=== PATIENT | female | born 1985 | race African-American/Black ===

== ENCOUNTER 2018-05-23 05:39 | Day surgery (SDC) | payer OTHER ==
[~2018-05-23] VITALS: Ht 162.6 cm; Wt 101.2 kg
[2018-05-23] MEDS ORDERED: ONDANSETRON PF 4 MG/2 ML VIAL. ONE (06:26)
[2018-05-23] MEDS ORDERED: DEXAMETHASONE SOD PHOS 20 MG/5 ML VIAL. ONE (06:26)
[2018-05-23] MEDS ORDERED: PROPOFOL 20 ML IV ONE (06:26)
[2018-05-23] MEDS ORDERED: ROCURONIUM 50 MG/5 ML VIAL. ONE (06:27)
[2018-05-23] MEDS ORDERED: fentaNYL PF VIAL 100 MCG/2 ML VIAL ONE (06:45)
[2018-05-23] MEDS ORDERED: FAMOTIDINE 20 MG/2 ML VIAL ONE (06:45)
[2018-05-23] MEDS ORDERED: MIDAZOLAM HCL/PF 2 MG/2 ML VIAL. ONE (06:45)
[2018-05-23] MEDS ORDERED: LIDOCAINE 1% PF 5 ML VIAL. ONE (06:46)
[2018-05-23] MEDS ORDERED: IV RINGERS,LACTATED 1000ML 1,000 ML IV SCH (07:00)
[2018-05-23] MEDS ORDERED: HYDROmorphone 2 MG/ML VIAL IV PRN (07:00)
[2018-05-23] MEDS ORDERED: LIDOCAINE 1% PF 2 ML VIAL. ID PRN (07:00)
[2018-05-23] MEDS ORDERED: MORPHINE SULFATE 2 MG/ML VIAL. IV PRN (07:00)
[2018-05-23] MEDS ORDERED: ONDANSETRON PF 4 MG/2 ML VIAL. IV PRN (07:00)
[2018-05-23] MEDS ORDERED: fentaNYL PF VIAL 100 MCG/2 ML VIAL IV PRN ×2 (07:00)
[2018-05-23] MEDS ORDERED: PROCHLORPERAZINE 10 MG/2 ML VIAL. IV PRN (07:00)
[2018-05-23] MEDS ORDERED: IOHEXOL 300 MG/ML 100ML VIAL. ONE (07:14)
[2018-05-23] MEDS ORDERED: BUPIVAC MPF-EPI 0.5%-1:200000 30 ML VIAL. ONE (07:14)
[2018-05-23] MEDS ORDERED: SURGICEL HEMOSTAT 4X8 EACH. ONE (07:14)
[2018-05-23] MEDS ORDERED: KETOROLAC 30 MG/ML INJ FOR OR. INJ ONE (07:22)
[2018-05-23 07:57] LABS: U PREG PATIENT NEGATIVE (NEG)
--- NOTE | 2018-05-23 08:02 | RAD ---
Intraoperative cholangiogram, 3 views, 05/23/2018: HISTORY: Cholecystectomy 3 spot films from surgery are presented for review. Contrast has been injected into the cystic duct remnant. 0.2 minutes of fluoroscopy time was utilized. There is good flow of contrast into the duodenum at the ampulla. The common duct is of normal caliber. No filling defect is seen in the common duct to suggest a retained calculus. No contrast extravasation is seen. IMPRESSION: No significant abnormality is detected. Electronically signed by: Earle Jensen MD (05/23/2018 7:58 AM) [facility]
[2018-05-23] MEDS ORDERED: NEOSTIGMINE METHYLSULFATE 5 MG/5 ML SYRINGE. ONE (08:07)
[2018-05-23] MEDS ORDERED: GLYCOPYRROLATE 1 MG/5 ML VIAL. ONE (08:07)
[2018-05-23] MEDS ORDERED: SEVOFLURANE 31 TO 60 MINUTES. IH ONE (08:23)
[2018-05-23] MEDS ORDERED: SEVOFLURANE 61 TO 120 MINUTES. IH ONE (08:23)
--- NOTE | 2018-05-23 08:53 | PDOC4 ---
Operative Note Operative Note Operative Note: Preoperative Diagnosis: Symptomatic cholelithiasis Postoperative Diagnosis: Calculus cholecystitis Procedure: Laparoscopic cholecystectomy with intraoperative cholangiogram Surgeons: Kayode Anesthesia: Gen. Estimated Blood Loss: 10 mL Specimen: Gallbladder to pathology Drains: None Complications: None Indications: The patient is a 32-year-old female who is been experiencing recurrent upper abdominal pain consistent with biliary colic. Surgical treatment was offered by means of a laparoscopic cholecystectomy. The risks of surgery were discussed which include bleeding, infection, bile duct injury, bile leak, pain, the potential for additional surgeries or procedures. The patient understands and would like to proceed. Description: The patient was taken to the operating room and laid supine on the operating table. General anesthesia was performed. The abdomen was prepped with ChloraPrep and draped in a standard surgical fashion. A small infraumbilical incision was made with a scalpel. The Veress needle was then inserted and a pneumoperitoneum was then created. A 5 mm trocar was then inserted and the laparoscope was introduced. In the upper midabdomen a 5 mm trocar was inserted and in the right upper quadrant one 2.3 mm mini lap grasper and one 5 mm trocar were inserted. The gallbladder was retracted cephalad. The gallbladder showed marked thickening and chronic inflammatory change with some filmy adhesions. The adhesions were swept away. The cystic duct was dissected free from surrounding tissues. One clip was placed on the duct near the gallbladder junction. An opening was made in the duct and a cholangiocatheter placed within and secured with a clip. Using contrast dye and fluoroscopy an intraoperative cholangiogram was performed that appeared unremarkable. The clip and catheter were then withdrawn. Three clips were placed on the cystic duct and it was divided. The cystic artery was then identified, dissected free, doubly clipped and divided as well. The gallbladder was then mobilized away from the liver with cautery. The umbilical 5 millimeter trocar was exchanged for an 11 millimeter trocar. The gallbladder was then placed in an endoscopic bag and extracted at the umbilical trocar site. The skin and fascial incisions had to be extended some to retrieve the thickened gallbladder containing large gallstone. The fascia was then approximated with 0 PDS sutures and infiltrated with half percent Marcaine with epinephrine. All blood and irrigation fluid was suctioned and hemostasis was good. The remaining ports were removed and the pneumoperitoneum was relieved. The skin incisions were closed using 4-0 Monocryl suture. Steri-Strips and dressings were then applied. The patient tolerated the procedure well and was sent to the recovery room in stable condition. At the end of the case all counts were correct. UMA STANTON MD May 23, 2018 08:53
--- NOTE | 2018-05-23 08:56 | DISCH ---
DISCHARGE INSTRUCTIONS Condition on Discharge Condition on Discharge: Stable Activity After Discharge Activity Instructions for Disc: Other, see below (no lifting over 20 lbs X 2 weeks) Diet after Discharge Diet after Discharge: Regular Wound Incision Care Wound/Incision Care: Other, see below (may remove bandaids and shower tomorrow) Follow-Up Follow up with: Dr Stanton in 2 weeks in office, call for appt [phone] UMA STANTON MD May 23, 2018 08:56
[2018-05-23] MEDS ORDERED: ONDA4TAB7 PO (09:01)
[2018-05-23] MEDS ORDERED: OXYC-323 PO (09:03)
[2018-05-23] MEDS ORDERED: oxyCODONE/APAP 5/325 1 TAB TABLET PO ONE (09:30)
[2018-05-23 10:15] VITALS: BP 117/76
--- NOTE | 2018-05-24 16:08 | PATHOLOGY ---
[facility] Accession Number: [id number] . 01 Material submitted: . GALLBLADDER . 01 Clinical history: . Symptomatic cholelithiasis . 02 Diagnosis: Gallbladder, laparoscopic cholecystectomy: - Cholelithiasis. - Chronic cholecystitis. (JPM:rose marie; 05/24/2018) QMS/05/24/2018 . 02 Comment: There is no evidence of malignancy. . 02 Electronically signed: . León Andrade MD, Pathologist NPI- [id number] . 01 Gross description: . The specimen is received in formalin, labeled "Enriquez, Krista, gallbladder" and consists of an intact white-carrillo, ragged, and multifocally hemorrhagic gallbladder measuring 9.0 cm in length and up to 2.9 cm in diameter. Opening reveals a lumen filled with thick gallbladder sludge and multiple mulberry green calculi measuring up to 1.9 cm. The largest calculus occludes the neck aspect. The mucosa is white-pink and trabeculated with a wall thickness average of 0.2 cm. No masses or lesions are identified. 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 (SDY; 05/23/2018) SYU/SYU . 02 Pathologist provided ICD-10: K80.10 . 02 CPT . 423451 Specimen Comment: A courtesy copy of this report has been sent to Specimen Comment: [phone], . Specimen Comment: Report sent to / DR COOK Specimen Comment: A duplicate report has been generated due to demographic updates. Performed at: [address], [place], [place] [id number] MD Isaías Murray MD Phone: [phone] Performed at: 02 [facility] [address] [place], [place] [id number] MD León Andrade MD Phone: [phone]
== END 2018-05-23 10:42 | disposition home or self-care (01) ==
LOC: SURG 05:39
PROVIDERS: ATTEND Surgery
DX: K80.10 Calculus of gallbladder with chronic cholecystitis without obstruction (principal); Z88.0 Allergy status to penicillin; Z79.899 Other long term (current) drug therapy; Z82.49 Family history of ischemic heart disease and other diseases of the circulatory system; E66.9 Obesity, unspecified; Z68.38 Body mass index [BMI] 38.0-38.9, adult
CPT/HCPCS: 47563; 74300; 81025; 88304; A7015; J1100; J1956; J2250; J2405; J2704; J2710; J3010; J3490; J7030; J7120; Q9967; J1885